=== PATIENT | female | born 1965 | race Caucasian/White ===

== ENCOUNTER 2021-01-08 10:04 | Inpatient (IN) | payer OTHER ==
[~2021-01-08] VITALS: Ht 162.6 cm; Wt 108.9 kg
[~2021-01-08 10:04] MED LIST: ADVIL PM CAPLE1 EACH PO; AMOX TR-K CLV1 EAC4 PO; AMOXIL 875 MG875 M1 PO; ASACOL 400 MG400 M1 PO; COMPAZINE10 M1 PO; HUMIRA40 MG/0.8 SUBQ; HYDROCODON-ACE1 EAC7 PO; IMURAN 50MG TAB50 M1 PO; IRON159 MG PO; IRON325 PO; LORTAB 5-325 M1 EACH PO; MULTI VITAMIN1 EACH PO; NEURONTIN 300300 M1 PO; NOHOMEMEDICATIONS; POTASSIUM20 PO; PREDNISONE 10 M10 M1 PO; PREDNISONE 5 MG5 M1 PO; TYLENOL325 MG PO; Zolpidem Tartrate PO
[2021-01-08 10:59] VITALS: BP 129/58
[2021-01-08 11:14] LABS: URINE BLOOD 1+ (Negative); URINE CLARITY CLEAR; URINE COLOR YELLOW; URINE GLUCOSE-RANDOM* NEGATIVE (Negative); URINE KETONES TRACE (Negative); URINE LEUKOCYTES-REFLEX TRACE (Negative); URINE NITRITE-REFLEX NEGATIVE (Negative); URINE PROTEIN (DIPSTICK) TRACE (Negative); URINE SPECIFIC GRAVITY >= 1.030 (1.005-1.035); URINE UROBILINOGEN 0.2 E.U./dl (0.2-1.0)
[2021-01-08 11:21] LABS: ICTOTEST (BILI CONFIRMATORY) Negative (Negative); URINE BILIRUBIN NEGATIVE (Negative)
[2021-01-08 11:33] LABS: CRYSTALS None Seen /LPF (None Seen); HYALINE CASTS 0-3 Few /LPF (None Seen); MUCUS 0-3 Light strn/LPF (None Seen)
[2021-01-08 11:34] LABS: SQUAMOUS 4-10 Moderate /LPF (0-3)
[2021-01-08 11:37] LABS: BACTERIA-REFLEX 1-9 Few /HPF (None Seen); URINE RBC 1-2 Rare /HPF (NONE SEEN); URINE WBC-REFLEX 0-5 Rare /HPF (0-5)
--- NOTE | 2021-01-08 11:38 | EKG ---
[place] [address] [facility] [place] [address] ELECTROCARDIOGRAM REPORT Name: OSMANI MEJIAS Room #: [facility]#: [id number] Admission: 01/08/21 Attend Phys: Discharge: Date of : 63 Report #: [id number] [facility] ED Test Date: 2021-01-08 Test Time: 11:20:01 Pat Name: OSMANI MEJIAS Department: Room: Gender: F Director Surgical: RAISA : 1965 Requested By: Reuben Tran Order Number: [id number] MD: Ayush Oakley Measurements Intervals Stanton Rate: 50 P: 62 NE: 164 QRS: 40 QRSD: 97 T: 71 QT: 467 QTc: 426 Interpretive Statements Sinus rhythm Compared to ECG 10/21/2011 11:42:16 ST (T wave) deviation no longer present Possible ischemia no longer present Electronically Signed On 01-08-2021 11:38:07 CDT by Ayush Oakley [email or web address] <ELECTRONICALLY SIGNED> By: Ayush Oakley MD, [facility] 01/08/21 1138 1120 1120 Ayush Oakley MD, FACC /EPI
[2021-01-08 12:06] LABS: POTASSIUM 4.3 mmol/L (3.5-5.1)
[2021-01-08 12:07] LABS: ABSOLUTE NEUTROPHILS 7.7 thou/uL (1.4-8.2); BASOPHILS 0.6 % (0.0-2.0); EOSINOPHILS 0.4 % (0.0-3.0); HEMATOCRIT 42.4 % (37.0-47.0); LYMPHOCYTES 8.7 % (24.0-44.0); MCH 30.9 pg (26.0-34.0); MCHC 33.1 g/dL (28.0-37.0); MCV 93.2 fL (80.0-100.0); MONOCYTES 5.2 % (1.0-8.0); PLATELET COUNT 265 thou/uL (150-400); POLYS 85.1 % (36.0-66.0); RBC 4.55 mil/uL (4.20-5.00); RDW 13.6 % (10.5-14.5); WBC 9.1 thou/uL (4.0-11.0)
[2021-01-08 12:09] LABS: ALBUMIN 3.7 g/dL (3.4-5.0); DIRECT BILIRUBIN 0.3 mg/dL (<0.1-0.2); TOTAL BILIRUBIN 0.8 mg/dL (0.2-1.0); TOTAL PROTEIN 7.3 g/dL (6.4-8.2)
[2021-01-08 16:55] VITALS: BP 134/49
[2021-01-08 17:33] VITALS: BP 134/49
[2021-01-08 17:45] VITALS: BP 112/64
[2021-01-08 21:00] VITALS: BP 122/57
[2021-01-09 05:50] LABS: HEMATOCRIT 39.6 % (37.0-47.0); HEMOGLOBIN 13.1 gm/dL (12.0-15.0); MCH 31.3 pg (26.0-34.0); MCHC 33.2 g/dL (28.0-37.0); MCV 94.2 fL (80.0-100.0); RBC 4.2 mil/uL (4.20-5.00); RDW 13.6 % (10.5-14.5); WBC 6.7 thou/uL (4.0-11.0)
[2021-01-09 05:54] LABS: CALCIUM 8.5 mg/dL (8.5-10.1); CREATININE 0.9 mg/dL (0.6-1.0); POTASSIUM 3.4 mmol/L (3.5-5.1)
[2021-01-09 07:16] VITALS: BP 121/58
[2021-01-09 15:41] VITALS: BP 132/77
[2021-01-09 15:47] VITALS: BP 94/50
[2021-01-09 20:19] VITALS: BP 114/59
[2021-01-10 07:56] VITALS: BP 125/60
--- NOTE | 2021-01-10 11:44 | HC ---
[facility] [place] [address] CONSULTATION Name: OSMANI MEJIAS Room #: 450-P ADM IN M.R.#: [id number] Admission: 01/08/21 Attend Phys: Merritt Kennedy MD Discharge: Date of : 63 Report #: [id number] THIS REPORT FOR: cc: Aubrie Damon MD, Cora A. MD Soliman, Mohsin Q. MD [facility] DOC #: [id number] Cat Galicia MD DATE OF SERVICE: 01/08/2021 GENERAL SURGERY CONSULTATION NOTE CHIEF COMPLAINT: Abdominal pain with nausea and vomiting. HISTORY OF PRESENT ILLNESS: The patient is a 55-year-old morbidly obese female who underwent a laparoscopic segmental small-bowel resection with release of small-bowel obstruction and Sugarbaker repair of an incarcerated parastomal hernia with Strattice mesh on 01/29/2016 here at [facility] by myself. The patient has been doing well since that time; however, developed abdominal pain, nausea and vomiting leading her to present to the emergency room earlier with findings of a large recurrent parastomal and incisional hernia containing loops of small-bowel with a resultant small-bowel obstruction. The patient has therefore been admitted and I am asked to evaluate. PAST MEDICAL HISTORY: Ulcerative colitis. PAST SURGICAL HISTORY: Status post total proctocolectomy with end ileostomy, prior cholecystectomy and hysterectomy. HOME MEDICATIONS: Neurontin and p.r.n. hydrocodone. ALLERGIES: SULFA, WHICH CAUSES HIVES AND A RASH. FAMILY HISTORY: Reviewed and noncontributory. SOCIAL HISTORY: Denies alcohol, tobacco or illicit drugs. REVIEW OF SYSTEMS: GENERAL: The patient denies nocturnal fevers or chills. HEENT: No change in vision, change in hearing. NECK: No swelling or difficulty swallowing. HEART: No chest pain, palpitations. LUNGS: No cough or shortness of breath. ABDOMEN: No nausea, no vomiting. GENITOURINARY: No dysuria or hematuria. [facility] [address] [place] [address] CONSULTATION Name: OSMANI MEJIAS Room #: [facility] IN ..#: [id number] Admission: 01/08/21 Attend Phys: Merritt Kennedy MD Discharge: Date of : 63 Report #: [id number] ENDOCRINE: No polyuria or polydipsia. HEMATOLOGIC: No history of bleeding or easy bruising. EXTREMITIES: No history of weakness or limited range of motion. NEUROLOGIC: No history of syncope or near syncopal episodes. SKIN AND INTEGUMENT: No history of abnormal lesions or moles. PSYCHIATRIC: No history of anxiety or depression. PHYSICAL EXAMINATION: VITAL SIGNS: Temperature 36.7, pulse 68, respirations 19, blood pressure 129/58. She has a BMI of 41.2, weighing 235 pounds. GENERAL: Alert and oriented, in no acute distress. HEENT: Normocephalic, atraumatic. Pupils equal, round, reactive to light. NECK: Supple without lymphadenopathy. Trachea midline. HEART: Regular rate and rhythm. RESPIRATORY: Lungs clear to auscultation bilaterally. ABDOMEN: Soft, nondistended. She is minimally tender in the parastomal tissues, but no guarding, rebound, or peritoneal signs or symptoms. GENITOURINARY: Normal external female genitalia. EXTREMITIES: No clubbing, cyanosis or edema. NEUROLOGIC: Cranial nerves II-XII are grossly intact. PSYCHIATRIC: Normal mood and affect. SKIN AND INTEGUMENT: No abnormal lesions or moles. LABORATORY AND X-RAY DATA: CBC shows white blood cell count of 9.1 thousand, hemoglobin 14.0, platelets 265,000. Creatinine is 1.0. Liver function enzymes are largely within normal limits. Her lactate is normal at 0.9. CT scan of the abdomen and pelvis reviewed, shows large lower abdominal to right parastomal hernia containing numerous loops of small-bowel and a resultant small-bowel obstruction. Of note, she has a positive urine screen even with a previous hysterectomy. ASSESSMENT AND PLAN: A 55-year-old obese female who underwent a total proctocolectomy and hysterectomy as well as a previous laparoscopic Sugarbaker repair of a parastomal hernia, who now presents with an incarcerated recurrent incisional and parastomal hernia, leading to a resultant small-bowel obstruction. Currently, the patient is not vomiting and as such, I do not see need for NG tube placement at this time. The patient should be kept n.p.o. with aggressive IV fluid rehydration. We will have gynecology evaluate for the positive screen per the orders of the hospitalist service and ultimately she will necessitate operative intervention in the form of a complex abdominal wall reconstruction after appropriate period of decompression for a couple of days. I sincerely appreciate this consult. I will follow closely and leave any further recommendations in the patient's chart as appropriate. [facility] [address] [place] [address] CONSULTATION Name: OSMANI MEJIAS Room #: 450-P ADM IN M.R.#: [id number] Admission: 01/08/21 Attend Phys: Merritt Kennedy MD Discharge: Date of : 63 Report #: [id number] MD MAGALI Alexander/PAUL <ELECTRONICALLY SIGNED> By: Cat Galicia MD, FACS 01/10/21 1144 1354 0045 Cat Galicia MD, FACS /nt
[2021-01-10 19:16] VITALS: BP 120/53
[2021-01-11 07:30] VITALS: BP 152/65
[2021-01-11 19:55] VITALS: BP 131/54
[2021-01-12 07:16] VITALS: BP 106/49
[2021-01-12 16:00] VITALS: BP 145/79
[2021-01-12 19:05] VITALS: BP 135/65
[2021-01-13 05:38] LABS: ALBUMIN 2.8 g/dL (3.4-5.0); CALCIUM 8.4 mg/dL (8.5-10.1); CREATININE 0.6 mg/dL (0.6-1.0); TOTAL BILIRUBIN 0.8 mg/dL (0.2-1.0); TOTAL PROTEIN 6.4 g/dL (6.4-8.2)
[2021-01-13 05:39] LABS: POTASSIUM 3.8 mmol/L (3.5-5.1)
[2021-01-13 06:46] LABS: ABSOLUTE NEUTROPHILS 3.3 thou/uL (1.4-8.2); BASOPHILS 0.2 % (0.0-2.0); EOSINOPHILS 2.1 % (0.0-3.0); HEMATOCRIT 40.2 % (37.0-47.0); HEMOGLOBIN 13.2 gm/dL (12.0-15.0); LYMPHOCYTES 18.7 % (24.0-44.0); MCH 30.9 pg (26.0-34.0); MCHC 32.8 g/dL (28.0-37.0); MCV 94.3 fL (80.0-100.0); PLATELET COUNT 219 thou/uL (150-400); RBC 4.26 mil/uL (4.20-5.00); RDW 13.7 % (10.5-14.5); WBC 5.1 thou/uL (4.0-11.0)
[2021-01-13 07:56] VITALS: BP 125/60
[2021-01-13 08:00] VITALS: BP 144/70
[2021-01-13 15:14] VITALS: BP 127/68
[2021-01-13 19:31] VITALS: BP 124/58
[2021-01-14 06:33] LABS: ALBUMIN 2.5 g/dL (3.4-5.0); CALCIUM 8.2 mg/dL (8.5-10.1); CREATININE 0.9 mg/dL (0.6-1.0); PHOSPHORUS 3.5 mg/dL (2.5-4.9)
[2021-01-14 06:35] LABS: POTASSIUM 2.2 mmol/L (3.5-5.1)
[2021-01-14 07:45] VITALS: BP 120/63
[2021-01-14 15:20] VITALS: BP 121/73
[2021-01-14 15:36] VITALS: BP 139/77
[2021-01-14 15:47] VITALS: BP 124/64
[2021-01-14 16:05] VITALS: BP 122/65
[2021-01-14 19:59] VITALS: BP 120/66
[2021-01-15 00:37] VITALS: BP 126/67
[2021-01-15 08:42] LABS: CALCIUM 8.6 mg/dL (8.5-10.1); CREATININE 0.9 mg/dL (0.6-1.0)
[2021-01-15 08:47] LABS: POTASSIUM 2.6 mmol/L (3.5-5.1)
[2021-01-15 09:00] VITALS: BP 133/71
[2021-01-15 09:17] LABS: MAGNESIUM 2.1 mg/dL (1.8-2.4)
--- NOTE | 2021-01-15 15:54 | O ---
[facility] [place] [address] OPERATIVE REPORT Name: OSMANI MEJIAS Room #: 450-P ADM IN M.R.#: [id number] Admission: 01/08/21 Attend Phys: Merritt Kennedy MD Discharge: Date of : 63 Report #: [id number] THIS REPORT FOR: cc: Aubrie Damon MD, Cora A. MD Soliman,Cat Feliciano MD [facility] DOC #: [id number] Cat Galicia MD DATE OF SERVICE: 01/14/2021 PREOPERATIVE DIAGNOSES: 1. Incarcerated recurrent incisional/parastomal hernia with small-bowel obstruction. 2. History of total proctocolectomy with end ileostomy and subsequent laparoscopic Sugarbaker repair of a parastomal hernia. 3. Morbid obesity with a BMI of greater than 40. POSTOPERATIVE DIAGNOSIS: 1. Incarcerated recurrent incisional/parastomal hernia with small-bowel obstruction. 2. History of total proctocolectomy with end ileostomy and subsequent laparoscopic Sugarbaker repair of a parastomal hernia. 3. Morbid obesity with a BMI of greater than 40. PROCEDURES PERFORMED: 1. Exploratory laparotomy with lysis of adhesions. 2. Debridement of ischemic/necrotic abdominal wall fascia and hernia sac. 3. Complex abdominal wall reconstruction with open repair of an incarcerated recurrent incisional/parastomal hernia using bioresorbable mesh. 4. Bilateral component separation in the anterior abdominal wall. 5. Adjacent tissue transfer closure of the anterior abdominal wall measuring 38 x 35 cm in dimension (1330 square cm). 6. Placement of a topical (Prevena) wound VAC. SURGEON: Cat Galicia MD HOP WORKER: LEÓN Stark ANESTHESIA: General endotracheal anesthesia with epidural anesthesia. ESTIMATED BLOOD LOSS: Minimal (less than 20 mL). COMPLICATIONS: None appreciated. SPECIMENS: Necrotic/ischemic abdominal wall fascia and hernia sac to pathology. [facility] [address] [place] [address] OPERATIVE REPORT Name: OSMANI MEJIAS Room #: 450-[facility]#: [id number] Admission: 01/08/21 Attend Phys: Merritt Kennedy MD Discharge: Date of : 63 Report #: [id number] INDICATIONS: The patient is a 55-year-old morbidly obese female who initially underwent both a hysterectomy and a cholecystectomy as well as a total proctocolectomy with end ileostomy by Dr. Fierro. The patient developed a parastomal hernia around her ileostomy in the right lower quadrant and as such, underwent a laparoscopic Sugarbaker repair with biologic mesh approximately 4-5 years ago. The patient has done well until recently, she developed acute onset nausea, vomiting and abdominal pain and bloating for which she presented to the emergency room and a CT scan was performed showing findings of incarcerated loops of small bowel contained within a recurrent parastomal hernia causing a bowel obstruction. The patient has been maintained with n.p.o. status and bowel rest and now that she has had decompression of her GI tract. Indication was for definitive surgical management today. DESCRIPTION OF PROCEDURE: After explaining the risks, benefits and alternatives of the procedure with the patient in detail in the preoperative holding area and obtaining consent, the patient was brought to the operating room and placed supine on the operating room table. After conducting a thorough timeout procedure, verifying correct patient and procedure, the patient was given general endotracheal anesthesia. Once adequate anesthesia was obtained, her SCDs were hooked up to the pneumatic compression device and she was given a preoperative dose of antibiotics in line with the SCIP protocol as it was time for her regularly scheduled inpatient regimen of antibiotic dosing. The patient's abdomen was now prepped and draped in the standard surgical sterile fashion with a Mark catheter placed within her ileostomy and the balloon inflated to prevent intraoperative contamination. Mark catheterized ostomy was covered with a Ray-Tarik and Ioban to prevent contamination. Now that the patient was prepped and draped in standard surgical sterile fashion, a #10 bladed scalpel was used to create a longitudinal midline incision from the superior umbilical location to the suprapubic location, carried to the left midline. Electrocautery was used to carry this down through skin and subcutaneous tissues to ensure hemostasis until we arrived upon the anterior fascia. There was evidence of a hernia defect at the umbilicus, which was easily entered and a finger was placed in the abdomen to control the fascial opening using electrocautery to prevent thermal burn. Now that I had the entire fascia opened, Trace clamps were placed on the midline fascial wound to the patient's right side and this was elevated. Attention was turned to the incarcerated loops of small bowel contained within the parastomal hernia. I was able to manually reduce these by pulling them intraabdominally. There were significant adhesions likely due to longstanding incarceration that were taken down with electrocautery. Now that I had fully reduced the small bowel, I proceeded to run the small bowel in a jjzv-hdgs-jxwi fashion where the ileostomy proximally showing no evidence of interloop adhesions, obstructions, serosal defects or enterotomies. The parastomal hernia was sizable showing approximately 5 cm superior to the ileostomy and being approximately 5 cm transversely. Rather than relocate the ileostomy, which would be very difficult due to short, thick, [facility] [address] [place] [address] OPERATIVE REPORT Name: OSMANI MEJIAS Room #: 450-P [facility] IN ..#: [id number] Admission: 01/08/21 Attend Phys: Merritt Kennedy MD Discharge: Date of : 63 Report #: [id number] fat mesentery, I elected to repair the parastomal hernia with a #1 PDS suture in standard running fashion, bringing the lateral borders of the parastomal hernia together and running the suture from inferior to superior. This brought it snug to the ileostomy as it traversed through the fascial opening. This primary suture repair appeared to be adequate at the fascial level; however, now attempts at medializing the midline fascial wound were unsuccessful without significant tension. I therefore proceeded to perform a bilateral component separation in the external oblique aponeurosis by scoring along the lateral border of the rectus abdominis muscle bilaterally as far craniocaudal as possible on the left and superior to the ileostomy on the right. This allowed for significant medial mobilization of the midline fascial wound that could be done without tension and without applying additional tension to the parastomal hernia that just been repaired. I now created large skin flaps circumferentially along the abdominal wall, which allowed me to perform the bilateral component separation and this was carried further laterally, superiorly and inferiorly to allow for an onlay of bioresorbable mesh buttressing. The skin flaps were created and the ischemic/necrotic fascia and hernia sac was resected and passed off the field as nonviable tissue. I now proceeded to close the midline fascial wound using looped #1 PDS suture in standard running fashion, which was tied down at the superior aspect of the fascial incision ensuring we did not catch the loop of bowel along the way by placing a malleable under the fascial closure. The malleable was removed and passed off the field immediately prior to tying down the midline fascial suture. Now that I had satisfactorily closed the fascial wound, I selected a piece of OviTex core bioresorbable permanent mesh. This measured 30 x 25 cm in dimension. A keyhole was cut out of the mesh to allow for traversing around the ileostomy and this was anchored using 2-0 Prolene to close the keyhole slit. The mesh was then anchored as an onlay using several sutures of 0 PDS suture as well as 40 mL of Tisseel to weld it to the fascial wound. A 19-Ukrainian round Jacek-Ruffin drain was now placed in the subcutaneous space, brought out through the left lower quadrant where it was anchored to the skin using 2-0 nylon in standard fashion. As there was now a paucity of subcutaneous tissue around the stoma from the large chronic parastomal hernia, I did elect to perform adjacent tissue transfer closure of the anterior abdominal wall. These large skin flaps were elevated. Counter incisions were made using electrocautery internally to allow rotated vascularized pedicles of subcutaneous tissue to fill in all of the areas where there was no subcutaneous tissue present. These rotated vascularized pedicle flaps were anchored using interrupted inverted 3-0 Vicryl sutures in several layers. Once I was satisfied with the abdominal wall closure, skin was closed at the dermal level using interrupted inverted 3-0 Vicryl sutures as well as skin ramin. Topical Prevena wound VAC was then applied. Digital finger intubation of the ileostomy after removal of the Mark catheter showed it to be patent to a subfascial level with near immediate expulsion of liquid stool into the colostomy appliance. At the end of the procedure, all instrument, needle and sponge counts were correct. [address] [address] OPERATIVE REPORT Name: OSMANI MEJIAS Room #: 450-P ADM IN M.R.#: [id number] Admission: 01/08/21 Attend Phys: Merritt Kennedy MD Discharge: Date of : 63 Report #: [id number] The patient tolerated the procedure without incident, was awakened in the operating room and transitioned to the recovery room in stable condition with no apparent complications. Cat Galicia MD MQS/NOVA <ELECTRONICALLY SIGNED> By: Cat Galicia MD, FACS 01/15/21 1554 1330 1507 Cat Galicia MD, FACS /nt
[2021-01-15 16:00] VITALS: BP 127/64
[2021-01-15 19:46] VITALS: BP 131/64
[2021-01-16 04:25] VITALS: BP 119/64
[2021-01-16 05:53] LABS: HEMATOCRIT 37.3 % (37.0-47.0); HEMOGLOBIN 12.2 gm/dL (12.0-15.0); MCH 30.8 pg (26.0-34.0); MCHC 32.6 g/dL (28.0-37.0); MCV 94.5 fL (80.0-100.0); RBC 3.95 mil/uL (4.20-5.00); RDW 13.8 % (10.5-14.5); WBC 8.9 thou/uL (4.0-11.0)
[2021-01-16 06:04] LABS: CREATININE 0.8 mg/dL (0.6-1.0)
[2021-01-16 06:08] LABS: POTASSIUM 2.8 mmol/L (3.5-5.1)
[2021-01-16 07:15] VITALS: BP 125/68
[2021-01-16 19:37] VITALS: BP 114/61
[2021-01-17 05:40] LABS: CALCIUM 7.9 mg/dL (8.5-10.1); CREATININE 0.7 mg/dL (0.6-1.0); POTASSIUM 3.3 mmol/L (3.5-5.1)
[2021-01-17 07:10] VITALS: BP 119/70
[2021-01-17] MEDS ORDERED: OXYCODONE HCL 55 MG PO (12:17)
[2021-01-17] MEDS ORDERED: ZOFRAN 4 MG ORAL4 MG PO (15:38)
[2021-01-17] MEDS ORDERED: NEURONTIN 300M300 M2 PO (15:38)
[2021-01-17] MEDS ORDERED: KLOR-CON 10 ER10 MEQ PO (15:38)
[2021-01-17] MEDS ORDERED: CEFDINIR300 MG PO (15:43)
--- NOTE | 2021-01-17 16:06 | PATH ---
[facility] [address] [place] [address] PATHOLOGY RPT PROCEDURE Name: PAULINE MEJIAS Room #: 450-P ADM IN M.R.#: [id number] Admission: 01/08/21 Date of : 63 Discharge: Report #: [id number] Path Case #: [id number] [facility] Accession Number: [id number] . 01 Material submitted: . small bowel - HERNIA SAC AND INCARCERATED CONTENTS . 01 Clinical history: . ABDOMINAL COMPONENT SEPARATION OPEN SMALL BOWEL OBSTRUCTION / PARASTOMAL HERNIA ABDOMINAL PAIN . 02 Diagnosis: Hernia sac and incarcerated contents, repair: - Fibrovascular connective tissue with congestion and reactive changes. . (IUV:mml; 01/17/2021) QLM 01/17/2021 1316 Local . 02 Electronically signed: . India Crane MD, Pathologist NPI- [id number] . 01 Gross description: . Received in formalin labeled "Pauline Mejias, hernia sac and incarcerated contents" are 2 portions of pink-salmeron membranous tissue and attached yellow-salmeron lobulated tissue measuring entirely 16.5 x 12.5 x 2.8 cm. The specimen is sectioned to reveal focally fibrotic cut surfaces without masses or nodules identified. Supervisor Wall Mirror Department tissue is submitted in cassette A1. [place] [place] [facility] 01/16/2021 0849 Local . 02 Pathologist provided ICD-10: K43.5 . 02 CPT . 881866 Specimen Comment: A courtesy copy of this report has been sent to [phone] Specimen Comment: [phone], Specimen Comment: Report sent to ,DR DE LEÓN / DR CLAY Performed at: [address] [id number] MD Brannon Shen MD Phone: [phone] Performed at: [address] [address] PATHOLOGY RPT PROCEDURE Name: PAULINE MEJIAS Room #: 450-P ADM IN M.R.#: [id number] Admission: 01/08/21 Date of : 63 Discharge: Report #: [id number] Path Case #: [id number] [address] [place] [address] [id number] MD India Crane MD Phone: [phone]
[2021-01-17 16:34] VITALS: BP 110/69
[2021-01-17 16:43] VITALS: BP 110/69
== END 2021-01-17 17:32 | disposition home or self-care (01) | DRG 336 ==
LOC: ER 10:04 → 4W 17:04 → EROBS 17:04 → 4W 17:33
PROVIDERS: Hospitalist; Internal Medicine; Nurse Practitioner; Surgery; ADMIT Hospitalist; ATTEND Hospitalist
PROC: 0D9670Z Drainage of Stomach with Drainage Device, Via Natural or Artificial Opening (ICD-10-PCS; principal; 2021-01-09)
PROC: 0DNU0ZZ Release Omentum, Open Approach (ICD-10-PCS; 2021-01-14)
PROC: 0JB80ZZ Excision of Abdomen Subcutaneous Tissue and Fascia, Open Approach (ICD-10-PCS; 2021-01-14)
PROC: 0JX80ZB Transfer Abdomen Subcutaneous Tissue and Fascia with Skin and Subcutaneous Tissue, Open Approach (ICD-10-PCS; 2021-01-14)
PROC: 0WUF0JZ Supplement Abdominal Wall with Synthetic Substitute, Open Approach (ICD-10-PCS; 2021-01-14)
DX: K43.0 Incisional hernia with obstruction, without gangrene (principal); E87.0 Hyperosmolality and hypernatremia; Z68.41 Body mass index [BMI] 40.0-44.9, adult; K43.3 Parastomal hernia with obstruction, without gangrene; E66.01 Morbid (severe) obesity due to excess calories; Z20.822 Contact with and (suspected) exposure to COVID-19; E11.9 Type 2 diabetes mellitus without complications; E87.6 Hypokalemia; Z90.49 Acquired absence of other specified parts of digestive tract; Z93.2 Ileostomy status; Z90.710 Acquired absence of both cervix and uterus; Z88.2 Allergy status to sulfonamides; Z87.891 Personal history of nicotine dependence; Z90.722 Acquired absence of ovaries, bilateral
CPT/HCPCS: 10040; 50010; 50101; 50386; 50455; 51437; 56524; 56525; 56527; 56530; 57092; 57116; 57254; 58775; 62110; 62900; 65075; 70005

== ENCOUNTER → 2021-02-10 | Outpatient (CLI) | payer OTHER ==
[~2021-02-10] MED LIST changes: +CEFDINIR300 MG PO; +KLOR-CON 10 ER10 MEQ PO; +NEURONTIN 300M300 M2 PO; +OXYCODONE HCL 55 MG PO; +ZOFRAN 4 MG ORAL4 MG PO
== END ==
LOC: HYPER 13:59
PROVIDERS: ATTEND Emergency Medicine
DX: T81.49XA Infection following a procedure, other surgical site, initial encounter (principal); L98.492 Non-pressure chronic ulcer of skin of other sites with fat layer exposed; E66.01 Morbid (severe) obesity due to excess calories; K51.818 Other ulcerative colitis with other complication; Z93.3 Colostomy status; Z87.891 Personal history of nicotine dependence; Z68.38 Body mass index [BMI] 38.0-38.9, adult; Y92.238 Other place in hospital as the place of occurrence of the external cause; Y83.8 Other surgical procedures as the cause of abnormal reaction of the patient, or of later complication, without mention of misadventure at the time of the procedure

== ENCOUNTER 2021-02-13 17:25 | Inpatient (IN) | payer OTHER ==
[~2021-02-13] VITALS: Ht 162.6 cm; Wt 109.3 kg
[2021-02-13 17:28] VITALS: BP 135/68
--- NOTE | 2021-02-13 17:44 | NUR ---
PT DENIES FEVERS, CHILLS OR PAIN. PT STATES COPIOUS AMOUNT OF BROWN LIQUID LOOKING LIKE HER STOOL FROM HER OSTOMY BAG COMING OUT OF HER WOUND. PT STATES REDNESS ON THE OUTTER EDGES LOOKS THE SAME. PT IS A&O X4, GCS 15, NO APPARENT DISTRESS NOTED
[2021-02-13 19:13] LABS: ABSOLUTE NEUTROPHILS 4.3 thou/uL (1.4-8.2); EOSINOPHILS 13.8 % (0.0-3.0); HEMATOCRIT 33.4 % (37.0-47.0); LYMPHOCYTES 14.3 % (24.0-44.0); MCH 30.2 pg (26.0-34.0); MCHC 32.9 g/dL (28.0-37.0); MCV 91.9 fL (80.0-100.0); MONOCYTES 12.3 % (1.0-8.0); PLATELET COUNT 301 thou/uL (150-400); POLYS 58.6 % (36.0-66.0); RBC 3.63 mil/uL (4.20-5.00); RDW 13.7 % (10.5-14.5); WBC 7.4 thou/uL (4.0-11.0)
[2021-02-13 19:18] LABS: CALCIUM 8.6 mg/dL (8.5-10.1); POTASSIUM 3.4 mmol/L (3.5-5.1)
[2021-02-13 19:24] LABS: ALBUMIN 2.5 g/dL (3.4-5.0); TOTAL BILIRUBIN 0.3 mg/dL (0.2-1.0); TOTAL PROTEIN 7.4 g/dL (6.4-8.2)
[2021-02-13 21:21] VITALS: BP 119/59
[2021-02-13 21:41] VITALS: BP 119/59
[2021-02-13 22:00] VITALS: BP 123/69
[2021-02-14 04:00] VITALS: BP 94/58
--- NOTE | 2021-02-14 04:46 | NUR ---
ADMIT PT ADMITTED TO ROOM 350 FROM ED FOR AN ABDOMINAL WALL ABSCESS. PT A/O X4, UP AD DARREN. IV INTACT TO LF AND NS@126CC'S/HR INFUSING, GETTING VANCOMYCIN, AND ZOSYN INTERMITTENTLY ORDERED. VSS, LUNGS CLEAR, PT HAD AN BOWEL RESECTION AND AN ILEOSOTMY PLACED INCISION TO MIDLINE ABDOMEN HAS A SMAL AREA NEAR THE UMBILICUS THAT HAD DEHISCED AND IS DRAINING PURULENT DRAINAGE, WOUND BED WITH WITH SLOUGH MATERIAL DRAINAGE OF PUS LIKE MATERIAL NOTED PT'S PANTS SOAKED WITH DRAINAGE ON ARRIVAL STATED IT WAS COMING OUT LIKE A WATER HOSE. DRAINAGE HAD DECREASED BY THE TIME PT ARRIVED TO FLOOR. DENIES PAIN. WOUND CLEANSED WITH NS, WET TO DRY DRESSING APPLIED, INTERDRY APPLIED TO PANNUS TO HELP WICK MOISTURE FROM PANNUS AND WOUND DRAINAGE AWAY.
[2021-02-14 05:54] LABS: HEMATOCRIT 33.4 % (37.0-47.0); HEMOGLOBIN 11.1 gm/dL (12.0-15.0); MCH 30.3 pg (26.0-34.0); MCHC 33.1 g/dL (28.0-37.0); MCV 91.6 fL (80.0-100.0); RBC 3.65 mil/uL (4.20-5.00); WBC 6.9 thou/uL (4.0-11.0)
--- NOTE | 2021-02-14 06:29 | NUR ---
PROGRESS PT A/O X4 UP WITH SBA, VOIDING QS. DENIES PAIN. VSS TELE INTACT READING SR WITH RATES IN 70'S. NIH SCORE 1 IV TO RAC SL AND LF SL. ACCUCHECKS CONTINUE PLANS FOR MRI TODAY CONTINUE POC.
[2021-02-14 06:31] LABS: CALCIUM 8.4 mg/dL (8.5-10.1); POTASSIUM 3.1 mmol/L (3.5-5.1)
[2021-02-14 07:36] VITALS: BP 106/55
--- NOTE | 2021-02-14 09:33 | NUR ---
OSTOMY CARE; AWAKE, ALERT, STATES SHE CHANGED OSTOMY POUCH ON 02/12, INTACT, NO LEAKAGE, LOOSE BILISH STOOL NOTED, DID NOT BRING SUPPLIES TO HOSP, OMAR CUT TO FIT SUPPLIES PLACED AT BS, DR DE LEÓN HERE, ASSESSED MID LINE ABD WOUND, LARGE AMT SEROUS PINKISH YELLOW DRAINAGE NOTED W/ SOME SLOUGH IN WOUND, PT STATES SHE SAW DR HUMPHREY ON 02/10 FOR WOUND EVAL. DAUGHTER ASSISTING W/ WOUND CARE AND NOTICED LARGE AMT DRAINAGE YESTERDAY AND CAME TO ER FOR EVAL, DR KANG AND DR HUMPHREY CONSULTED, WOUND REDRESSES W/ NS W/D GAUZE, COVERED W/ ABD PAD UNTIL SEEN BY WOUND DR RECOMMENDATIONS; CHANGE POUCH Q 3-5 DAYS AND PRN, EMTPY PRN IVF EMBRYOLOGIST AWARE RECOMMENDATIONS; C
--- NOTE | 2021-02-14 09:45 | NUR ---
pt indicated she at home with her spouse and dtr, mavis. pt is active and independent with care. pt uses no dmes. pt has sx this past december. pt used hh in the past but doesnt recall which agenecy & stated since sx mavis has been "doing a good job...packing wound." pt indicated wound care to assess today and surgeon to assess her situation today. cm to cont to follow to assit with d/c planning as needed.
--- NOTE | 2021-02-14 10:48 | NUR ---
Assess due to RD consult for pt with dehisced abdominal wound. Recently here in 12/2020 for exploratory lap, BERTHA, and incarcerated hernia repair, total colectomy for ulcerative colitis. Appetite has been fair past few weeks, complains foods taste alteration, some nausea. Trying to eat smaller meals, and supplements with premier protein drinks. Had lost about 20 lb intentional before surgery following a lower carb diet. Wt down additional 11 lb. NPO for now, but pt would like to start Ensure Max once diet advanced. Low nutrition risk.
[2021-02-14 14:54] VITALS: BP 108/54
[2021-02-14 19:11] VITALS: BP 103/55
--- NOTE | 2021-02-14 19:57 | NUR ---
PLACED HAT IN THE TOILET IN ORDER TO CATCH URINE OUTPUT. ALSO ASKED PATIENT TO COLLECT ILEOSTOMY CONTENTS INTO GRADUATE,FOR OUTPUT MEASUREMENT.
--- NOTE | 2021-02-15 02:22 | NUR ---
CONTINUE TO MAINTIAN ANTIBIOTIC ADMINISTRATION. RESTING QUIETLY TONIGHT. DENIES PAIN AT THIS TIME. SHE IS WANTING TO REST. SHE STATED THAT SHE IS FEELING EXHAUSTED. DRESSING TO ABD DRY AND INTACT, NO SHADOWING THROUGH OF DRAINAGE.
[2021-02-15 04:14] VITALS: BP 93/45
[2021-02-15 07:01] VITALS: BP 99/62
[2021-02-15 11:13] LABS: CALCIUM 8.3 mg/dL (8.5-10.1); CREATININE 0.9 mg/dL (0.6-1.0); POTASSIUM 4.1 mmol/L (3.5-5.1)
[2021-02-15 14:59] VITALS: BP 90/40
[2021-02-15 21:14] VITALS: BP 88/44
[2021-02-16 03:28] VITALS: BP 97/53
[2021-02-16 05:18] LABS: CALCIUM 7.7 mg/dL (8.5-10.1); CREATININE 0.9 mg/dL (0.6-1.0); POTASSIUM 3.4 mmol/L (3.5-5.1)
[2021-02-16 06:59] VITALS: BP 107/62
[2021-02-16 15:11] VITALS: BP 98/47
[2021-02-16 19:27] VITALS: BP 126/68
[2021-02-17 04:24] VITALS: BP 81/44
[2021-02-17 05:17] VITALS: BP 94/48
--- NOTE | 2021-02-17 05:32 | NUR ---
Pt. requested sleep med. SUPERVISOR TOWER notified and order received. Tylenol pm given per pt. request and stated she slept well during the night. C/O soreness around ostomy site from it being excoriated she rated as 3/10. Mid abd dressing CDI. Kept NPO per order. Voiding per bathroom. Afebrile. BP this am 81/44 when she first woke up .Asymptomatic and she stated her BP usually runs low sometimes. Rechecked and got 94/48 with MAP of 63. Up ad marisela in room with steady gait.
[2021-02-17 05:48] LABS: CALCIUM 7.9 mg/dL (8.5-10.1)
[2021-02-17 07:19] VITALS: BP 101/51
--- NOTE | 2021-02-17 09:58 | NUR ---
OSTOMY CARE; AWAKE, ALERT, COOPERATIVE, POUCH EDGES LOOSE, PT STATES ISSUES OVER WEEKEND W/ POUCH LEAKING AND NOW PERISTOMAL AREA RED, EXCORIATED ~ 3CM AREA, SCANT BLEEDING, STOMA RED VIABLE FLAT W/ SKIN SURFACE, MARATHON PREP APPLIED TO PERISTOMAL AREA, SWITCHED TO CONVEX PRECUT 1 INCH POUCH FOR BETTER WEAR TIME AND LESS LEAKAGE, ADAPT RING APPLIED UNDER WAFER, DAUGHTER AT BS WHO ASSISTS PRN OSTOMY CARE AT HOME, GOOD UNDERSTANDING OF CARE, WILL ORDER PRECUT POUCHES TO BE SENT TO HOME THRU [employer] SECURE START PROGRAM, PT GETS SUPPLIES THRU SCOTTY, GIVEN #S OF NEW SUPPLIES TO ORDER RECOMMENDATIONS; OMAR WAFER #[id number], POUCH #[id number], ADAPT RING #7345, CHANGE Q 3-4 DAYS AND PRN, EMTPY PRN LANDFILL GAS TECHNICIAN AWARE
[2021-02-17 15:00] VITALS: BP 97/54
--- NOTE | 2021-02-17 15:53 | NUR ---
SW reviewed chart and spoke with nursing and attending physician. Pt remains on IV abx. ID, wound care and surgery following for possible I&D. Case discussed with dope house operator helper. TYE is following to assist as needed with discharge planning.
--- NOTE | 2021-02-17 19:18 | NUR ---
RN ASSUMED PT'S CARE AT 0700-1700PM, PT IS A&OX4, PT IS CONTINUING IV ABX AND WOUND CARE , PT'S VS ARE STABLE, ID DR AND WOUND DR HAVE SEEING THE PT.
[2021-02-17 19:59] VITALS: BP 109/64
[2021-02-18 03:51] VITALS: BP 105/50
--- NOTE | 2021-02-18 06:39 | NUR ---
Pt. requested sleep med , tyl pm given and stated she slept well during the night. Denies need for pain med. Up ad marisela in room with steady gait. Voids per bathroom and empties own ileostomy. Mid abd dressing dry and intact. Making some progress towards care plan goals.
[2021-02-18 08:00] VITALS: BP 90/50
--- NOTE | 2021-02-18 12:59 | NUR ---
SW reviewed chart and spoke with nursing and attending physician. Pt remains on IV abx. Fistulagram ordered today due to abdominal pain with drainage. Wound care is following. Plan is for pt to discharge home when medically stable. TYE is following to assist as needed with discharge planning.
--- NOTE | 2021-02-18 17:23 | NUR ---
RN ASSUMED PT'S CARE AT 0700AM, PT IS A&OX4, PT IS CONTINUING IV ABX, AND WOUND CARE , PT'S VS ARE STABLE, PT CAN GO TO BATH ROOM BY HERSELF, PT CAN TOLERATIVE ABD PAIN , PT HAS CT ABD/ PELVIS W/O CONTRAST DONE TODAY, RESULTS SHOW NO FISTULA AND ABSCESS. PT HAS ONE TIME MEDICATION FOR N/V.
[2021-02-18 20:02] VITALS: BP 107/52
--- NOTE | 2021-02-19 05:08 | NUR ---
denies abd pain, however she did want somethinf her back achiness at bedtime. tylenol and benedryl at bedtime relieved her pain and insomnia. dressing to abd intact. she has been resting well tonight. careplan reviewed.
[2021-02-19 05:33] VITALS: BP 99/54
[2021-02-19 07:08] VITALS: BP 100/52
--- NOTE | 2021-02-19 09:20 | NUR ---
OSTOMY CARE; POUCH STILL INTACT FROM WEDNESDAY, 02/17, NO LEAKAGE, CONVEX 1' SUPPLIES AT BS, PT HAS GOOD UNDERSTANDING OF OSTOMY CARE, TO USE MARATHON PREP UNTIL AREA ALL HEALED, ALSO AWARE OF CORRECT SUPPLIES TO ORDER, WANTS TO GO HOME, STATES DAUGHTER WILL ASSIST W/ CARE BUT WOULD ALSO LIKE HOME HEALTH SERVICES, CASE MANAGEMENT WORKING W/ PT, WILL CHANGE POUCH TOMORROW IF PT STILL HERE. ALSO ORDERED SUPPLIES THRU SECURE START OMAR TO BE SENT TO HOME. AWAITING DR VISIT REGARDING WOUND CARE, POSSIBLE NPWT, IV ANTIBIOTICS. WILL CONT TO FOLLOW LECTURER IN COMPUTER SCIENCE AWARE
--- NOTE | 2021-02-19 09:45 | HC ---
[facility] [place] [address] CONSULTATION Name: OSMANI MEJIAS Room #: 350-P ADM IN M.R.#: [id number] Admission: 02/13/21 Attend Phys: Merritt Kennedy MD Discharge: Date of : 63 Report #: [id number] THIS REPORT FOR: cc: Aubrie Damon MD, Cora A. MD Althoff, Jeffrey R. MD ~ DOC #: [id number] Alex Suazo MD DATE OF SERVICE: 02/14/2021 CHIEF COMPLAINT: Surgical wound abdominal wall. HISTORY OF PRESENT ILLNESS: This is a 55-year-old female patient who has undergone recent complex abdominal wall repair. She went home. She had an ileostomy and has had some drainage as her ostomy appliances leaked. Additionally, she had a CHAYA drain in place that was accidentally pulled out and she pushed back in. She within the next 24-48 hours developed increasing swelling, redness from the abdominal wall and developed significant drainage from the midline incision line. She has been followed by Dr. Henry. We have been asked to see her with regard to wound care. PAST MEDICAL HISTORY: Once again is positive for a complex abdominal wall reconstruction with an open repair of an incarcerated recurrent incisional and parastomal hernia. She has a history of ulcerative colitis, status post total colectomy with ileostomy, diabetes mellitus, cholecystectomy, morbid obesity. FAMILY HISTORY: Noncontributory. SOCIAL HISTORY: Negative for significant alcohol or tobacco use. REVIEW OF SYSTEMS: CONSTITUTIONAL: The patient denies fever, chills or weight loss. NEUROLOGICAL: The patient denies focal weakness or tingling. EYES: The patient denies visual changes, redness, drainage. ENT: The patient denies earache, nasal drainage, sore throat. CARDIOVASCULAR: The patient denies chest pain, palpitations, diaphoresis. PULMONARY: No congestion of breath. GASTROINTESTINAL: Denies nausea, vomiting, diarrhea, but does have some mild abdominal discomfort, but not significant pain, but moderate drainage. ORTHOPEDIC: The patient denies pain, swelling, or limitation of the extremities. Others listed in a 14-point review of systems are negative. PHYSICAL EXAMINATION: VITAL SIGNS: At this time include temperature 36.7, pulse 67, respiration of 16, blood pressure 108/54. GENERAL: This is a chronically ill-appearing female patient appears [facility] [address] [place] [address] CONSULTATION Name: OSMANI MEJIAS Thao Room #: 350-P [facility] IN M.R.#: [id number] Admission: 02/13/21 Attend Phys: Merritt Kennedy MD Discharge: Date of : 63 Report #: [id number] distress. HEENT: Normocephalic. Nose and throat are clear. NECK: Supple. LUNGS: Clear. ABDOMEN: Soft. There is some mild induration below in the lower quadrants but no fluctuance noted. There is a midline surgical incision. There is some separation of the midline. We were able to suction out approximately 200 mL of serosanguineous type fluid. There is no odor. It does not have the appearance of any enteric contents. The ileostomy appliance is fitted in place right now fairly well. NEUROLOGIC: The patient is alert and oriented, moving all 4 extremities spontaneously. LABORATORY DATA: Sodium 139, potassium 3.1, chloride 106, CO2 22, BUN 11, creatinine 1.0, glucose 83. White blood cell count 6.9 with a hemoglobin of 11.1. ASSESSMENT: 1. Surgical wound abdominal wall, status post complex abdominal wall repair and parastomal hernia repair. 2. Surgical incisional separation with moderate drainage. This could represent seroma versus abscess versus possible enterocutaneous fistula, although I think that is less likely given the appearance of the drainage material. Morbid obesity. 3. Type 2 diabetes mellitus. 4. History of ulcerative colitis, status post total colectomy and ileostomy placement. RECOMMENDATION: The recommendation at this point in time, we will recommend packing with half-inch iodoform gauze to be changed on a daily basis and as needed. We will recommend placement of an EVD to cover the incision line. We will continue to observe clinically. We might consider a fistulogram, although I am not entirely sure if this is needed at this time. She will be seen by Infectious Disease as well as by General Surgery. I appreciate being asked to see her in consultation. MD GERRY Vuong/FRANCISCO <ELECTRONICALLY SIGNED> By: Alex Suazo MD 02/19/21 0945 [id number] Alex Suazo MD /nt
--- NOTE | 2021-02-19 13:36 | NUR ---
TYE reviewed chart and spoke with nursing and attending physician. Pt is progressing towards goals for discharge. Fistulagram was negative. Pt remains on IV abx. May need wound vac placed per wound care. TYE received voice message from Karla Red RN CM with pt's insurance to assist with post acute needs. TYE left voice message for Karla ( Case # [id number]) this morning to request in-network providers if needed. Awaiting call back at this time. Plan is for pt to discharge home when medically stable. TYE is following to assist as needed with discharge planning.
--- NOTE | 2021-02-19 13:40 | NUR ---
CARE ASSUMED THIS AM, PT ALERT AND ORIENTED X4, DENIES ANY PAIN, NAUSEA AND VOMITTING. PT ON ROOM AIR, NO SIGNS OF DISTRESS NOTED. ABD WOUND CHANGE THIS AM BY NIGHT NURSE. PT UP AD DARREN. ILEOTOMY IN PLACE. PT DNEIES ANY NEEDS AT MOMENT. WILL CONTINUE TO MONITOR.
[2021-02-19 14:50] VITALS: BP 118/61
[2021-02-19 19:45] VITALS: BP 123/4; BP 123/64
--- NOTE | 2021-02-20 08:29 | NUR ---
OSTOMY CARE; ALERT, COOPERATIVE, POUCH EDGES LOOSE THIS AM, CHANGED USING CONVEX OMAR ONE PIECE 1 INCH CONVEX, PERISTOMAL SKIN IMPROVED, ONLY DENIS AT BASE OF STOMA. MARATHON PREP APPLIED W/ ADAPT RING UNDER WAFER, EDUCATION TO PT ON USE OF NEED FOR CONVEX APPLIANCES AND USE OF MARATHON, GOOD UNDERSTANDING, STOMA RED VIABLE, SLIGHTLY BUDDED W/ BROWN LOOSE STOOL PRESENT, SCHEDULED FOR ABD WOUND DEBRIDEMENT TODAY, WILL CONT TO FOLLOW RECOMMENDATIONS; RILEY CONVEX APPLIANCE, CHANGE Q 3-4 DAYS AND PRN, EMPTY PRN GAS DISTRIBUTION SUPERVISOR AWARE
[2021-02-20 08:41] VITALS: BP 93/51
--- NOTE | 2021-02-20 09:20 | NUR ---
Followup: eating much better 80-100% of meals and drinking ensure supplement. Wts are trending higher now 241-243 lb. Remains low nutrition risk. Chart notes progressing towards discharge goals.
--- NOTE | 2021-02-20 13:56 | NUR ---
TYE reviewed chart and spoke with nursing and attending physician. Pt is slowly progressing towards goals for discharge. Pt remains on IV abx. Pt to have wound vac placed today per wound care. Wound vac [facility] be [facility] through [facility] per wound care. Pt will not have an I&D. Pt will also need HH services. TYE spoke with Karla ( Case # [id number]) at pt's insurance to discuss in network providers. [facility] in network with pt's insurance. [facility] is also in network. TYE notified [facility] liaison of new referral. Contact info for Karla provided to wound care and HH to assist with authorization process if needed. Pt is currently having wound vac placed. SW to follow up with pt at a later time to discuss discharge plan. TYE is following to assist as needed with discharge planning.
--- NOTE | 2021-02-20 14:55 | NUR ---
PT I&D CANCELLED BY DR. HUMPHREY, WOUND VAC PLACED INSTEAD. PT TOOK A SHOWER EARLIER. ON ROOM AIR, NO SIGNS OF DISTRESS. DENIES ANY PAIN. PLAN IS TO CONTINUE IV ABX, POSSIBLE D/C SOON.
[2021-02-20 15:20] VITALS: BP 118/71
[2021-02-20 19:40] VITALS: BP 110/62
[2021-02-21 03:25] VITALS: BP 109/57
--- NOTE | 2021-02-21 05:14 | NUR ---
C/O mild headache , tylenol given with good relief. Sleep med given and stated she slept well during the night. Abd wound to wound vac. Denies any other concern. Progressing towards care plan goals.
[2021-02-21 07:06] VITALS: BP 110/59
--- NOTE | 2021-02-21 08:27 | NUR ---
Received consult to arrange home IV abx. Pt will need Ceftriaxone 2 gm daily. TYE spoke with pt to discuss home IV abx. Options for home infusion provided. No preference voiced. TYE spoke with pt's RN CM with her insurance, [employer], to obtain in-network providers. [facility] is in-network with pt's insurance plan. TYE faxed referral to [facility] and notified [facility] liaison. Awaiting insurance verification at this time. Pt's wound vac is scheduled to be delivered to [facility] today and will be placed prior to discharge. Pt will have HH with [facility]. Contact numbers for all providers placed in pt's discharge summary. TYE is following to finalize pt's discharge.
--- NOTE | 2021-02-21 08:37 | NUR ---
OSTOMY CARE F/U; POUCH INTACT, NO SIGNS LEAKAGE, PT STATES DAUGHTER INFORMED HER SECURE START OSTOMY SUPPLIES ARRIVED AT HER HOME YESTERDAY, HAS CONVEX 1'PRECUT OMAR POUCHES AT BS, INFORMED PT TO CONT USING THIS PRODUCT GETTING GOOD WEAR TIME, VERBAL UNDERSTANDING TRAINING MGR AWARE
[2021-02-21 08:54] VITALS: BP 110/59
[2021-02-21] MEDS ORDERED: CEFTRIAXON1 GM/50 M1 IVPB (10:25)
[2021-02-21] MEDS ORDERED: ACIDOPHILUS1 EAC4 PO (10:25)
[2021-02-21 12:30] VITALS: BP 110/59
--- NOTE | 2021-02-21 14:49 | NUR ---
VAT CONSULTED AND PLACED 4FR SL LEFT BASILIC PICC, TRIMMED 50CM WITH 2CM EXTERNAL. PT TOLERATED WELL. TIP LOCATION VERIFIED WITH 3CG. RELEASED LINE, PER HOSPITAL VASCULAR ACCESS POLICY.
[2021-02-21 15:19] VITALS: BP 114/60
--- NOTE | 2021-02-21 19:54 | NUR ---
1200 PT D/C ORDERS IN PT DISCHARGE, WAITING ON WOUND VAC AND HOME INFUSION [facility] FOR EDUCATION 1920 PT HOME WOUND VAC HERE, PT EDUCATED ON HOW TO CHANGE CANNISTER FOR WOUND VAC AND HOW TO CHARGE IT. ALL OTHER SUPPLIES GIVEN TO PT. PIV D/C. PICC LINE IN PLACE FOR HOME INFUSION. D/C INSTRUCTION AND NEW MED INFO GIVEN TO PT. PT DENIES ANY OTHER QUESTIONS. TAKEN DOWN, PT FAMILY OICKED HER UP
== END 2021-02-21 19:30 | disposition home or self-care (01) | DRG 862 ==
LOC: ER 17:25 → EROBS 21:02 → 3W 21:02
PROVIDERS: Emergency Medicine; Nurse Practitioner Family; ADMIT Hospitalist; ATTEND Hospitalist
PROC: 05HY33Z Insertion of Infusion Device into Upper Vein, Percutaneous Approach (ICD-10-PCS; principal; 2021-02-21)
DX: T81.43XA Infection following a procedure, organ and space surgical site, initial encounter (principal); E43 Unspecified severe protein-calorie malnutrition; L02.211 Cutaneous abscess of abdominal wall; K51.90 Ulcerative colitis, unspecified, without complications; Z68.41 Body mass index [BMI] 40.0-44.9, adult; E11.9 Type 2 diabetes mellitus without complications; E66.01 Morbid (severe) obesity due to excess calories; E87.6 Hypokalemia; R53.81 Other malaise; Z90.49 Acquired absence of other specified parts of digestive tract; Z88.2 Allergy status to sulfonamides; Z87.891 Personal history of nicotine dependence; Y83.8 Other surgical procedures as the cause of abnormal reaction of the patient, or of later complication, without mention of misadventure at the time of the procedure; Y92.89 Other specified places as the place of occurrence of the external cause
CPT/HCPCS: 10879

== ENCOUNTER → 2021-02-27 | Outpatient (CLI) | payer OTHER ==
[~2021-02-27] MED LIST changes: +ACIDOPHILUS1 EAC4 PO; +CEFTRIAXON1 GM/50 M1 IVPB
== END ==
LOC: HYPER 08:07
PROVIDERS: ATTEND Emergency Medicine
DX: T81.40XD Infection following a procedure, unspecified, subsequent encounter (principal); L98.492 Non-pressure chronic ulcer of skin of other sites with fat layer exposed; K51.818 Other ulcerative colitis with other complication; E66.9 Obesity, unspecified; Z68.38 Body mass index [BMI] 38.0-38.9, adult; Z93.3 Colostomy status; Z87.891 Personal history of nicotine dependence; Z79.899 Other long term (current) drug therapy; Y83.8 Other surgical procedures as the cause of abnormal reaction of the patient, or of later complication, without mention of misadventure at the time of the procedure

== ENCOUNTER → 2021-03-06 | Outpatient (CLI) | payer OTHER | LOC: HYPER 07:50 | PROVIDERS: ATTEND Emergency Medicine | DX: T81.49XD Infection following a procedure, other surgical site, subsequent encounter (principal); L98.492 Non-pressure chronic ulcer of skin of other sites with fat layer exposed; K51.818 Other ulcerative colitis with other complication; E66.01 Morbid (severe) obesity due to excess calories; Z68.38 Body mass index [BMI] 38.0-38.9, adult; Z93.3 Colostomy status; Z87.891 Personal history of nicotine dependence; Y83.8 Other surgical procedures as the cause of abnormal reaction of the patient, or of later complication, without mention of misadventure at the time of the procedure ==

== ENCOUNTER → 2021-03-20 | Outpatient (CLI) | payer OTHER | LOC: HYPER 08:01 | PROVIDERS: ATTEND Emergency Medicine | DX: T81.49XD Infection following a procedure, other surgical site, subsequent encounter (principal); L98.492 Non-pressure chronic ulcer of skin of other sites with fat layer exposed; K51.818 Other ulcerative colitis with other complication; E66.01 Morbid (severe) obesity due to excess calories; Z68.38 Body mass index [BMI] 38.0-38.9, adult; Z93.3 Colostomy status; Z87.891 Personal history of nicotine dependence; Y83.8 Other surgical procedures as the cause of abnormal reaction of the patient, or of later complication, without mention of misadventure at the time of the procedure ==

== ENCOUNTER → 2021-03-21 | Outpatient (CLI) | payer OTHER | LOC: HYPER 07:51 | PROVIDERS: ATTEND Emergency Medicine | DX: T81.40XD Infection following a procedure, unspecified, subsequent encounter (principal); L98.492 Non-pressure chronic ulcer of skin of other sites with fat layer exposed; K51.818 Other ulcerative colitis with other complication; E66.9 Obesity, unspecified; Z68.38 Body mass index [BMI] 38.0-38.9, adult; Z93.3 Colostomy status; Z87.891 Personal history of nicotine dependence; Z79.899 Other long term (current) drug therapy; Y83.8 Other surgical procedures as the cause of abnormal reaction of the patient, or of later complication, without mention of misadventure at the time of the procedure ==

== ENCOUNTER → 2021-03-27 | Outpatient (CLI) | payer OTHER | LOC: HYPER 07:38 | PROVIDERS: ATTEND Emergency Medicine Emergency Medical Services | DX: T81.49XD Infection following a procedure, other surgical site, subsequent encounter (principal); L98.492 Non-pressure chronic ulcer of skin of other sites with fat layer exposed; K51.818 Other ulcerative colitis with other complication; E66.01 Morbid (severe) obesity due to excess calories; Z68.38 Body mass index [BMI] 38.0-38.9, adult; Z93.3 Colostomy status; Z87.891 Personal history of nicotine dependence; Y83.8 Other surgical procedures as the cause of abnormal reaction of the patient, or of later complication, without mention of misadventure at the time of the procedure ==

== ENCOUNTER → 2021-04-10 | Outpatient (CLI) | payer OTHER | LOC: HYPER 08:05 | PROVIDERS: ATTEND Emergency Medicine | DX: T81.40XD Infection following a procedure, unspecified, subsequent encounter (principal); L98.492 Non-pressure chronic ulcer of skin of other sites with fat layer exposed; K51.818 Other ulcerative colitis with other complication; E66.9 Obesity, unspecified; Z68.38 Body mass index [BMI] 38.0-38.9, adult; Z87.891 Personal history of nicotine dependence; Z93.3 Colostomy status; Z79.899 Other long term (current) drug therapy; Y83.8 Other surgical procedures as the cause of abnormal reaction of the patient, or of later complication, without mention of misadventure at the time of the procedure ==

== ENCOUNTER → 2021-04-17 | Outpatient (CLI) | payer OTHER | LOC: HYPER 08:35 | PROVIDERS: ATTEND Emergency Medicine Emergency Medical Services | DX: T81.49XD Infection following a procedure, other surgical site, subsequent encounter (principal); L98.492 Non-pressure chronic ulcer of skin of other sites with fat layer exposed; K51.818 Other ulcerative colitis with other complication; E66.01 Morbid (severe) obesity due to excess calories; Z68.38 Body mass index [BMI] 38.0-38.9, adult; Z87.891 Personal history of nicotine dependence; Z93.3 Colostomy status; Y83.8 Other surgical procedures as the cause of abnormal reaction of the patient, or of later complication, without mention of misadventure at the time of the procedure ==

== ENCOUNTER → 2021-04-25 | Outpatient (CLI) | payer OTHER | LOC: HYPER 09:58 | PROVIDERS: ATTEND Emergency Medicine Emergency Medical Services | DX: T81.31XD Disruption of external operation (surgical) wound, not elsewhere classified, subsequent encounter (principal); T81.40XD Infection following a procedure, unspecified, subsequent encounter; L98.492 Non-pressure chronic ulcer of skin of other sites with fat layer exposed; K51.818 Other ulcerative colitis with other complication; E66.9 Obesity, unspecified; Z68.38 Body mass index [BMI] 38.0-38.9, adult; Z87.891 Personal history of nicotine dependence; Z79.899 Other long term (current) drug therapy; Z93.3 Colostomy status; Y83.8 Other surgical procedures as the cause of abnormal reaction of the patient, or of later complication, without mention of misadventure at the time of the procedure ==

== ENCOUNTER → 2021-04-28 | Outpatient (CLI) | payer OTHER | LOC: HYPER 08:28 | PROVIDERS: ATTEND Emergency Medicine | DX: T81.49XD Infection following a procedure, other surgical site, subsequent encounter (principal); L98.492 Non-pressure chronic ulcer of skin of other sites with fat layer exposed; K51.818 Other ulcerative colitis with other complication; E66.01 Morbid (severe) obesity due to excess calories; Z68.38 Body mass index [BMI] 38.0-38.9, adult; Z87.891 Personal history of nicotine dependence; Z93.3 Colostomy status; Y83.8 Other surgical procedures as the cause of abnormal reaction of the patient, or of later complication, without mention of misadventure at the time of the procedure ==

== ENCOUNTER → 2021-04-28 | Outpatient (CLI) | payer OTHER | LOC: CAT 04-16 08:44 | PROVIDERS: ATTEND Emergency Medicine | DX: M47.816 Spondylosis without myelopathy or radiculopathy, lumbar region (principal); L98.492 Non-pressure chronic ulcer of skin of other sites with fat layer exposed; Z90.49 Acquired absence of other specified parts of digestive tract ==

== ENCOUNTER → 2021-04-30 | Outpatient (CLI) | payer OTHER | LOC: HYPER 09:08 | PROVIDERS: ATTEND Emergency Medicine | DX: T81.49XD Infection following a procedure, other surgical site, subsequent encounter (principal); L98.492 Non-pressure chronic ulcer of skin of other sites with fat layer exposed; L84 Corns and callosities; K51.818 Other ulcerative colitis with other complication; E66.01 Morbid (severe) obesity due to excess calories; Z68.38 Body mass index [BMI] 38.0-38.9, adult; Z87.891 Personal history of nicotine dependence; Z93.3 Colostomy status; Y83.8 Other surgical procedures as the cause of abnormal reaction of the patient, or of later complication, without mention of misadventure at the time of the procedure ==

== ENCOUNTER → 2021-05-02 | Outpatient (CLI) | payer OTHER | LOC: HYPER 07:41 | PROVIDERS: ATTEND Emergency Medicine Emergency Medical Services | DX: T81.49XD Infection following a procedure, other surgical site, subsequent encounter (principal); L98.492 Non-pressure chronic ulcer of skin of other sites with fat layer exposed; L84 Corns and callosities; K51.818 Other ulcerative colitis with other complication; Z87.891 Personal history of nicotine dependence; Z93.3 Colostomy status; Y83.8 Other surgical procedures as the cause of abnormal reaction of the patient, or of later complication, without mention of misadventure at the time of the procedure ==

== ENCOUNTER → 2021-05-06 | Outpatient (CLI) | payer OTHER | LOC: HYPER 08:25 | PROVIDERS: ATTEND Emergency Medicine | DX: T81.31XD Disruption of external operation (surgical) wound, not elsewhere classified, subsequent encounter (principal); T81.40XD Infection following a procedure, unspecified, subsequent encounter; L98.492 Non-pressure chronic ulcer of skin of other sites with fat layer exposed; K51.818 Other ulcerative colitis with other complication; E66.9 Obesity, unspecified; Z68.38 Body mass index [BMI] 38.0-38.9, adult; Z93.3 Colostomy status; Z87.891 Personal history of nicotine dependence; Z79.899 Other long term (current) drug therapy; Y83.8 Other surgical procedures as the cause of abnormal reaction of the patient, or of later complication, without mention of misadventure at the time of the procedure ==

== ENCOUNTER → 2021-05-09 | Outpatient (CLI) | payer OTHER | LOC: HYPER 08:18 | PROVIDERS: ATTEND Emergency Medicine | DX: T81.31XD Disruption of external operation (surgical) wound, not elsewhere classified, subsequent encounter (principal); T81.40XD Infection following a procedure, unspecified, subsequent encounter; L98.492 Non-pressure chronic ulcer of skin of other sites with fat layer exposed; K51.818 Other ulcerative colitis with other complication; E66.9 Obesity, unspecified; Z68.38 Body mass index [BMI] 38.0-38.9, adult; Z87.891 Personal history of nicotine dependence; Z93.3 Colostomy status; Z79.899 Other long term (current) drug therapy; Y83.8 Other surgical procedures as the cause of abnormal reaction of the patient, or of later complication, without mention of misadventure at the time of the procedure ==

== ENCOUNTER → 2021-05-12 | Outpatient (CLI) | payer OTHER | LOC: HYPER 08:31 | PROVIDERS: ATTEND Emergency Medicine | DX: T81.49XD Infection following a procedure, other surgical site, subsequent encounter (principal); L98.492 Non-pressure chronic ulcer of skin of other sites with fat layer exposed; L84 Corns and callosities; K51.818 Other ulcerative colitis with other complication; E66.9 Obesity, unspecified; Z68.38 Body mass index [BMI] 38.0-38.9, adult; Z93.3 Colostomy status; Z87.891 Personal history of nicotine dependence; Y83.8 Other surgical procedures as the cause of abnormal reaction of the patient, or of later complication, without mention of misadventure at the time of the procedure ==

== ENCOUNTER → 2021-05-16 | Outpatient (CLI) | payer OTHER | LOC: HYPER 07:58 | DX: T81.31XD Disruption of external operation (surgical) wound, not elsewhere classified, subsequent encounter (principal); T81.40XD Infection following a procedure, unspecified, subsequent encounter; L98.492 Non-pressure chronic ulcer of skin of other sites with fat layer exposed; K51.818 Other ulcerative colitis with other complication; Z93.3 Colostomy status; E66.9 Obesity, unspecified; Z68.38 Body mass index [BMI] 38.0-38.9, adult; Z87.891 Personal history of nicotine dependence; Z79.899 Other long term (current) drug therapy; Y83.8 Other surgical procedures as the cause of abnormal reaction of the patient, or of later complication, without mention of misadventure at the time of the procedure ==

== ENCOUNTER → 2021-05-19 | Outpatient (CLI) | payer OTHER | LOC: HYPER 09:25 | PROVIDERS: ATTEND Emergency Medicine | DX: T81.49XD Infection following a procedure, other surgical site, subsequent encounter (principal); L98.492 Non-pressure chronic ulcer of skin of other sites with fat layer exposed; L84 Corns and callosities; K51.818 Other ulcerative colitis with other complication; E66.01 Morbid (severe) obesity due to excess calories; Z68.38 Body mass index [BMI] 38.0-38.9, adult; Z93.3 Colostomy status; Z87.891 Personal history of nicotine dependence; Y83.8 Other surgical procedures as the cause of abnormal reaction of the patient, or of later complication, without mention of misadventure at the time of the procedure ==

== ENCOUNTER → 2021-05-21 | Outpatient (CLI) | payer OTHER | LOC: HYPER 05-14 08:45 | PROVIDERS: ATTEND Emergency Medicine | DX: T81.31XD Disruption of external operation (surgical) wound, not elsewhere classified, subsequent encounter (principal); T81.40XD Infection following a procedure, unspecified, subsequent encounter; L98.492 Non-pressure chronic ulcer of skin of other sites with fat layer exposed; K51.818 Other ulcerative colitis with other complication; E66.9 Obesity, unspecified; Z68.38 Body mass index [BMI] 38.0-38.9, adult; Z87.891 Personal history of nicotine dependence; Z93.3 Colostomy status; Y83.8 Other surgical procedures as the cause of abnormal reaction of the patient, or of later complication, without mention of misadventure at the time of the procedure ==

== ENCOUNTER → 2021-05-23 | Outpatient (CLI) | payer OTHER | LOC: HYPER 08:10 | PROVIDERS: ATTEND Emergency Medicine Emergency Medical Services | DX: T81.31XD Disruption of external operation (surgical) wound, not elsewhere classified, subsequent encounter (principal); T81.40XD Infection following a procedure, unspecified, subsequent encounter; L98.492 Non-pressure chronic ulcer of skin of other sites with fat layer exposed; K51.818 Other ulcerative colitis with other complication; E66.9 Obesity, unspecified; Z87.891 Personal history of nicotine dependence; Z93.3 Colostomy status; Z79.899 Other long term (current) drug therapy; Y83.8 Other surgical procedures as the cause of abnormal reaction of the patient, or of later complication, without mention of misadventure at the time of the procedure ==

== ENCOUNTER → 2021-05-26 | Outpatient (CLI) | payer OTHER | LOC: HYPER 09:06 | PROVIDERS: ATTEND Emergency Medicine | DX: T81.49XD Infection following a procedure, other surgical site, subsequent encounter (principal); L98.492 Non-pressure chronic ulcer of skin of other sites with fat layer exposed; L84 Corns and callosities; K51.818 Other ulcerative colitis with other complication; E66.01 Morbid (severe) obesity due to excess calories; Z68.38 Body mass index [BMI] 38.0-38.9, adult; Z93.3 Colostomy status; Z87.891 Personal history of nicotine dependence; Y83.8 Other surgical procedures as the cause of abnormal reaction of the patient, or of later complication, without mention of misadventure at the time of the procedure ==

== ENCOUNTER → 2021-05-28 | Outpatient (CLI) | payer OTHER | LOC: HYPER 09:45 | PROVIDERS: ATTEND Emergency Medicine | DX: T81.49XD Infection following a procedure, other surgical site, subsequent encounter (principal); L98.492 Non-pressure chronic ulcer of skin of other sites with fat layer exposed; L84 Corns and callosities; K51.818 Other ulcerative colitis with other complication; E66.01 Morbid (severe) obesity due to excess calories; Z68.38 Body mass index [BMI] 38.0-38.9, adult; Z93.3 Colostomy status; Z87.891 Personal history of nicotine dependence; Y83.8 Other surgical procedures as the cause of abnormal reaction of the patient, or of later complication, without mention of misadventure at the time of the procedure ==

== ENCOUNTER → 2021-06-02 | Outpatient (CLI) | payer OTHER | LOC: HYPER 08:54 | PROVIDERS: ATTEND Emergency Medicine | DX: T81.49XD Infection following a procedure, other surgical site, subsequent encounter (principal); L98.492 Non-pressure chronic ulcer of skin of other sites with fat layer exposed; L84 Corns and callosities; K51.818 Other ulcerative colitis with other complication; E66.01 Morbid (severe) obesity due to excess calories; Z68.38 Body mass index [BMI] 38.0-38.9, adult; Z93.3 Colostomy status; Z87.891 Personal history of nicotine dependence; Y83.8 Other surgical procedures as the cause of abnormal reaction of the patient, or of later complication, without mention of misadventure at the time of the procedure ==

== ENCOUNTER → 2021-06-04 | Outpatient (CLI) | payer OTHER | LOC: HYPER 13:26 | PROVIDERS: ATTEND Emergency Medicine | DX: T81.49XD Infection following a procedure, other surgical site, subsequent encounter (principal); L98.492 Non-pressure chronic ulcer of skin of other sites with fat layer exposed; L84 Corns and callosities; K51.818 Other ulcerative colitis with other complication; E66.01 Morbid (severe) obesity due to excess calories; Z68.38 Body mass index [BMI] 38.0-38.9, adult; Z93.3 Colostomy status; Z87.891 Personal history of nicotine dependence; Y83.8 Other surgical procedures as the cause of abnormal reaction of the patient, or of later complication, without mention of misadventure at the time of the procedure ==

== ENCOUNTER → 2021-06-06 | Outpatient (CLI) | payer OTHER | LOC: HYPER 08:17 | PROVIDERS: ATTEND Emergency Medicine | DX: T81.40XD Infection following a procedure, unspecified, subsequent encounter (principal); L98.492 Non-pressure chronic ulcer of skin of other sites with fat layer exposed; K51.818 Other ulcerative colitis with other complication; E66.9 Obesity, unspecified; Z93.3 Colostomy status; Z87.891 Personal history of nicotine dependence; Z79.899 Other long term (current) drug therapy; Y83.8 Other surgical procedures as the cause of abnormal reaction of the patient, or of later complication, without mention of misadventure at the time of the procedure ==

== ENCOUNTER → 2021-06-09 | Outpatient (CLI) | payer OTHER | LOC: HYPER 08:54 | PROVIDERS: ATTEND Emergency Medicine | DX: T81.49XD Infection following a procedure, other surgical site, subsequent encounter (principal); L98.492 Non-pressure chronic ulcer of skin of other sites with fat layer exposed; L84 Corns and callosities; K51.818 Other ulcerative colitis with other complication; E66.01 Morbid (severe) obesity due to excess calories; Z68.38 Body mass index [BMI] 38.0-38.9, adult; Z93.3 Colostomy status; Z87.891 Personal history of nicotine dependence; Y83.8 Other surgical procedures as the cause of abnormal reaction of the patient, or of later complication, without mention of misadventure at the time of the procedure ==

== ENCOUNTER → 2021-06-11 | Outpatient (CLI) | payer OTHER | LOC: HYPER 09:15 | PROVIDERS: ATTEND Emergency Medicine | DX: T81.49XD Infection following a procedure, other surgical site, subsequent encounter (principal); L98.492 Non-pressure chronic ulcer of skin of other sites with fat layer exposed; L84 Corns and callosities; K51.818 Other ulcerative colitis with other complication; E66.01 Morbid (severe) obesity due to excess calories; Z68.38 Body mass index [BMI] 38.0-38.9, adult; Z93.3 Colostomy status; Z87.891 Personal history of nicotine dependence; Y83.8 Other surgical procedures as the cause of abnormal reaction of the patient, or of later complication, without mention of misadventure at the time of the procedure ==

== ENCOUNTER → 2021-06-13 | Outpatient (CLI) | payer OTHER | LOC: HYPER 07:46 | PROVIDERS: ATTEND Emergency Medicine Emergency Medical Services | DX: T81.31XD Disruption of external operation (surgical) wound, not elsewhere classified, subsequent encounter (principal); T81.49XD Infection following a procedure, other surgical site, subsequent encounter; L98.492 Non-pressure chronic ulcer of skin of other sites with fat layer exposed; K51.818 Other ulcerative colitis with other complication; E66.9 Obesity, unspecified; Z68.38 Body mass index [BMI] 38.0-38.9, adult; Z87.891 Personal history of nicotine dependence; Z93.3 Colostomy status; Y83.8 Other surgical procedures as the cause of abnormal reaction of the patient, or of later complication, without mention of misadventure at the time of the procedure ==

== ENCOUNTER → 2021-06-16 | Outpatient (CLI) | payer OTHER | LOC: HYPER 08:20 | PROVIDERS: ATTEND Emergency Medicine | DX: T81.40XD Infection following a procedure, unspecified, subsequent encounter (principal); L98.492 Non-pressure chronic ulcer of skin of other sites with fat layer exposed; K51.818 Other ulcerative colitis with other complication; E66.9 Obesity, unspecified; Z68.38 Body mass index [BMI] 38.0-38.9, adult; Z87.891 Personal history of nicotine dependence; Z79.899 Other long term (current) drug therapy; Z93.3 Colostomy status; Y83.8 Other surgical procedures as the cause of abnormal reaction of the patient, or of later complication, without mention of misadventure at the time of the procedure ==

== ENCOUNTER → 2021-06-20 | Outpatient (CLI) | payer OTHER | LOC: HYPER 07:53 | PROVIDERS: ATTEND Emergency Medicine Emergency Medical Services | DX: T81.49XD Infection following a procedure, other surgical site, subsequent encounter (principal); L98.492 Non-pressure chronic ulcer of skin of other sites with fat layer exposed; K51.818 Other ulcerative colitis with other complication; Z87.891 Personal history of nicotine dependence; Z98.890 Other specified postprocedural states; Z93.3 Colostomy status; Y83.8 Other surgical procedures as the cause of abnormal reaction of the patient, or of later complication, without mention of misadventure at the time of the procedure ==

== ENCOUNTER → 2021-06-23 | Outpatient (CLI) | payer OTHER | LOC: HYPER 13:34 | PROVIDERS: ATTEND Emergency Medicine | DX: T81.49XD Infection following a procedure, other surgical site, subsequent encounter (principal); L98.492 Non-pressure chronic ulcer of skin of other sites with fat layer exposed; L84 Corns and callosities; K51.818 Other ulcerative colitis with other complication; E66.01 Morbid (severe) obesity due to excess calories; Z87.891 Personal history of nicotine dependence; Z93.3 Colostomy status; Z68.38 Body mass index [BMI] 38.0-38.9, adult; Y83.8 Other surgical procedures as the cause of abnormal reaction of the patient, or of later complication, without mention of misadventure at the time of the procedure ==

== ENCOUNTER → 2021-06-30 | Outpatient (CLI) | payer OTHER | LOC: HYPER 13:10 | PROVIDERS: ATTEND Emergency Medicine | DX: T81.49XD Infection following a procedure, other surgical site, subsequent encounter (principal); L98.492 Non-pressure chronic ulcer of skin of other sites with fat layer exposed; L84 Corns and callosities; K51.818 Other ulcerative colitis with other complication; E66.01 Morbid (severe) obesity due to excess calories; Z87.891 Personal history of nicotine dependence; Z93.3 Colostomy status; Z68.38 Body mass index [BMI] 38.0-38.9, adult; Y83.8 Other surgical procedures as the cause of abnormal reaction of the patient, or of later complication, without mention of misadventure at the time of the procedure ==

== ENCOUNTER → 2021-07-14 | Outpatient (CLI) | payer OTHER | LOC: HYPER 08:14 | PROVIDERS: ATTEND Emergency Medicine | DX: T81.49XD Infection following a procedure, other surgical site, subsequent encounter (principal); L98.492 Non-pressure chronic ulcer of skin of other sites with fat layer exposed; L84 Corns and callosities; K51.818 Other ulcerative colitis with other complication; E66.01 Morbid (severe) obesity due to excess calories; Z87.891 Personal history of nicotine dependence; Z93.3 Colostomy status; Z68.38 Body mass index [BMI] 38.0-38.9, adult; Y83.8 Other surgical procedures as the cause of abnormal reaction of the patient, or of later complication, without mention of misadventure at the time of the procedure ==

== ENCOUNTER → 2021-07-28 | Outpatient (CLI) | payer OTHER | LOC: HYPER 10:28 | PROVIDERS: ATTEND Emergency Medicine | DX: T81.31XD Disruption of external operation (surgical) wound, not elsewhere classified, subsequent encounter (principal); T81.49XD Infection following a procedure, other surgical site, subsequent encounter; L98.492 Non-pressure chronic ulcer of skin of other sites with fat layer exposed; K51.818 Other ulcerative colitis with other complication; E66.9 Obesity, unspecified; Z68.38 Body mass index [BMI] 38.0-38.9, adult; Z87.891 Personal history of nicotine dependence; Z79.899 Other long term (current) drug therapy; Z93.3 Colostomy status; Y83.8 Other surgical procedures as the cause of abnormal reaction of the patient, or of later complication, without mention of misadventure at the time of the procedure ==

== ENCOUNTER → 2021-08-18 | Outpatient (CLI) | payer OTHER | LOC: HYPER 09:57 | PROVIDERS: ATTEND Emergency Medicine Emergency Medical Services | DX: T81.31XD Disruption of external operation (surgical) wound, not elsewhere classified, subsequent encounter (principal); T81.49XD Infection following a procedure, other surgical site, subsequent encounter; L98.492 Non-pressure chronic ulcer of skin of other sites with fat layer exposed; K51.818 Other ulcerative colitis with other complication; E66.9 Obesity, unspecified; Z68.38 Body mass index [BMI] 38.0-38.9, adult; Z87.891 Personal history of nicotine dependence; Z79.899 Other long term (current) drug therapy; Z93.3 Colostomy status; Y83.8 Other surgical procedures as the cause of abnormal reaction of the patient, or of later complication, without mention of misadventure at the time of the procedure ==

== ENCOUNTER → 2021-09-01 | Outpatient (CLI) | payer OTHER | LOC: HYPER 08:49 | PROVIDERS: ATTEND Emergency Medicine | DX: T81.49XD Infection following a procedure, other surgical site, subsequent encounter (principal); T81.31XD Disruption of external operation (surgical) wound, not elsewhere classified, subsequent encounter; L98.492 Non-pressure chronic ulcer of skin of other sites with fat layer exposed; K51.818 Other ulcerative colitis with other complication; E66.01 Morbid (severe) obesity due to excess calories; Z68.38 Body mass index [BMI] 38.0-38.9, adult; Z87.891 Personal history of nicotine dependence; Z93.3 Colostomy status; Y83.8 Other surgical procedures as the cause of abnormal reaction of the patient, or of later complication, without mention of misadventure at the time of the procedure ==

== ENCOUNTER → 2021-09-15 | Outpatient (CLI) | payer OTHER | LOC: HYPER 10:37 | PROVIDERS: ATTEND Emergency Medicine | DX: T81.49XD Infection following a procedure, other surgical site, subsequent encounter (principal); T81.31XD Disruption of external operation (surgical) wound, not elsewhere classified, subsequent encounter; L98.492 Non-pressure chronic ulcer of skin of other sites with fat layer exposed; K51.818 Other ulcerative colitis with other complication; E66.01 Morbid (severe) obesity due to excess calories; Z68.38 Body mass index [BMI] 38.0-38.9, adult; Z87.891 Personal history of nicotine dependence; Z93.3 Colostomy status; Y83.8 Other surgical procedures as the cause of abnormal reaction of the patient, or of later complication, without mention of misadventure at the time of the procedure ==

== ENCOUNTER → 2021-09-29 | Outpatient (CLI) | payer OTHER | LOC: HYPER 12:42 | PROVIDERS: ATTEND Emergency Medicine | DX: T81.49XD Infection following a procedure, other surgical site, subsequent encounter (principal); T81.31XD Disruption of external operation (surgical) wound, not elsewhere classified, subsequent encounter; L98.492 Non-pressure chronic ulcer of skin of other sites with fat layer exposed; K51.818 Other ulcerative colitis with other complication; E66.01 Morbid (severe) obesity due to excess calories; Z68.38 Body mass index [BMI] 38.0-38.9, adult; Z87.891 Personal history of nicotine dependence; Z93.3 Colostomy status; Y83.8 Other surgical procedures as the cause of abnormal reaction of the patient, or of later complication, without mention of misadventure at the time of the procedure ==

== ENCOUNTER → 2021-10-03 | Outpatient (CLI) | payer OTHER | LOC: HYPER 07:56 | PROVIDERS: ATTEND Emergency Medicine | DX: T81.49XD Infection following a procedure, other surgical site, subsequent encounter (principal); T81.31XD Disruption of external operation (surgical) wound, not elsewhere classified, subsequent encounter; L98.492 Non-pressure chronic ulcer of skin of other sites with fat layer exposed; K51.818 Other ulcerative colitis with other complication; E66.01 Morbid (severe) obesity due to excess calories; Z68.38 Body mass index [BMI] 38.0-38.9, adult; Z87.891 Personal history of nicotine dependence; Z93.3 Colostomy status; Y83.8 Other surgical procedures as the cause of abnormal reaction of the patient, or of later complication, without mention of misadventure at the time of the procedure ==

== ENCOUNTER → 2021-10-06 | Outpatient (CLI) | payer OTHER | LOC: HYPER 08:29 | PROVIDERS: ATTEND Emergency Medicine | DX: T81.31XD Disruption of external operation (surgical) wound, not elsewhere classified, subsequent encounter (principal); T81.49XD Infection following a procedure, other surgical site, subsequent encounter; L98.492 Non-pressure chronic ulcer of skin of other sites with fat layer exposed; K51.818 Other ulcerative colitis with other complication; R05.9 Cough, unspecified; E66.9 Obesity, unspecified; Z68.38 Body mass index [BMI] 38.0-38.9, adult; Z93.3 Colostomy status; Z87.891 Personal history of nicotine dependence; Z79.899 Other long term (current) drug therapy; Y83.8 Other surgical procedures as the cause of abnormal reaction of the patient, or of later complication, without mention of misadventure at the time of the procedure ==

== ENCOUNTER → 2021-10-08 | Outpatient (CLI) | payer OTHER | LOC: HYPER 07:50 | PROVIDERS: ATTEND Emergency Medicine | DX: T81.31XD Disruption of external operation (surgical) wound, not elsewhere classified, subsequent encounter (principal); T81.49XD Infection following a procedure, other surgical site, subsequent encounter; L98.492 Non-pressure chronic ulcer of skin of other sites with fat layer exposed; K51.818 Other ulcerative colitis with other complication; E66.9 Obesity, unspecified; Z68.38 Body mass index [BMI] 38.0-38.9, adult; Z87.891 Personal history of nicotine dependence; Z79.899 Other long term (current) drug therapy; Z93.3 Colostomy status; Y83.8 Other surgical procedures as the cause of abnormal reaction of the patient, or of later complication, without mention of misadventure at the time of the procedure ==

== ENCOUNTER → 2021-10-10 | Outpatient (CLI) | payer OTHER | LOC: HYPER 08:05 | PROVIDERS: ATTEND Emergency Medicine | DX: T81.49XD Infection following a procedure, other surgical site, subsequent encounter (principal); L98.492 Non-pressure chronic ulcer of skin of other sites with fat layer exposed; K51.818 Other ulcerative colitis with other complication; R05.9 Cough, unspecified; E66.01 Morbid (severe) obesity due to excess calories; Z68.38 Body mass index [BMI] 38.0-38.9, adult; Z93.3 Colostomy status; Z87.891 Personal history of nicotine dependence; Y83.8 Other surgical procedures as the cause of abnormal reaction of the patient, or of later complication, without mention of misadventure at the time of the procedure ==

== ENCOUNTER → 2021-10-13 | Outpatient (CLI) | payer OTHER | LOC: HYPER 12:59 | PROVIDERS: ATTEND Emergency Medicine | DX: T81.31XD Disruption of external operation (surgical) wound, not elsewhere classified, subsequent encounter (principal); T81.49XD Infection following a procedure, other surgical site, subsequent encounter; L98.492 Non-pressure chronic ulcer of skin of other sites with fat layer exposed; K51.818 Other ulcerative colitis with other complication; R05.9 Cough, unspecified; E66.9 Obesity, unspecified; Z68.38 Body mass index [BMI] 38.0-38.9, adult; Z87.891 Personal history of nicotine dependence; Z79.899 Other long term (current) drug therapy; Z93.3 Colostomy status; Y83.8 Other surgical procedures as the cause of abnormal reaction of the patient, or of later complication, without mention of misadventure at the time of the procedure ==

== ENCOUNTER → 2021-10-15 | Outpatient (CLI) | payer OTHER | LOC: HYPER 08:32 | PROVIDERS: ATTEND Emergency Medicine | DX: T81.49XD Infection following a procedure, other surgical site, subsequent encounter (principal); L98.492 Non-pressure chronic ulcer of skin of other sites with fat layer exposed; L84 Corns and callosities; K51.818 Other ulcerative colitis with other complication; R05.9 Cough, unspecified; E66.01 Morbid (severe) obesity due to excess calories; Z68.38 Body mass index [BMI] 38.0-38.9, adult; Z93.3 Colostomy status; Z87.891 Personal history of nicotine dependence; Y83.8 Other surgical procedures as the cause of abnormal reaction of the patient, or of later complication, without mention of misadventure at the time of the procedure ==

== ENCOUNTER → 2021-10-17 | Outpatient (CLI) | payer OTHER | LOC: HYPER 09:50 | PROVIDERS: ATTEND Emergency Medicine | DX: T81.31XD Disruption of external operation (surgical) wound, not elsewhere classified, subsequent encounter (principal); T81.49XD Infection following a procedure, other surgical site, subsequent encounter; L98.492 Non-pressure chronic ulcer of skin of other sites with fat layer exposed; K51.818 Other ulcerative colitis with other complication; E66.9 Obesity, unspecified; Z68.38 Body mass index [BMI] 38.0-38.9, adult; Z87.891 Personal history of nicotine dependence; Z79.899 Other long term (current) drug therapy; Z93.3 Colostomy status; Y83.8 Other surgical procedures as the cause of abnormal reaction of the patient, or of later complication, without mention of misadventure at the time of the procedure ==

== ENCOUNTER → 2021-10-20 | Outpatient (CLI) | payer OTHER | LOC: HYPER 07:43 | PROVIDERS: ATTEND Emergency Medicine | DX: T81.49XD Infection following a procedure, other surgical site, subsequent encounter (principal); L98.492 Non-pressure chronic ulcer of skin of other sites with fat layer exposed; K51.818 Other ulcerative colitis with other complication; R05.9 Cough, unspecified; E66.9 Obesity, unspecified; Z68.38 Body mass index [BMI] 38.0-38.9, adult; Z87.891 Personal history of nicotine dependence; Z79.899 Other long term (current) drug therapy; Z93.3 Colostomy status; Y83.8 Other surgical procedures as the cause of abnormal reaction of the patient, or of later complication, without mention of misadventure at the time of the procedure ==

== ENCOUNTER → 2021-10-23 | Outpatient (CLI) | payer OTHER | LOC: HYPER 11:29 | PROVIDERS: ATTEND Emergency Medicine | DX: T81.31XD Disruption of external operation (surgical) wound, not elsewhere classified, subsequent encounter (principal); T81.49XD Infection following a procedure, other surgical site, subsequent encounter; L98.492 Non-pressure chronic ulcer of skin of other sites with fat layer exposed; K51.818 Other ulcerative colitis with other complication; R05.9 Cough, unspecified; E66.01 Morbid (severe) obesity due to excess calories; Z68.38 Body mass index [BMI] 38.0-38.9, adult; Z87.891 Personal history of nicotine dependence; Z93.3 Colostomy status; Y83.8 Other surgical procedures as the cause of abnormal reaction of the patient, or of later complication, without mention of misadventure at the time of the procedure ==

== ENCOUNTER → 2021-10-27 | Outpatient (CLI) | payer OTHER | LOC: HYPER 07:55 | PROVIDERS: ATTEND Emergency Medicine Emergency Medical Services | DX: T81.31XD Disruption of external operation (surgical) wound, not elsewhere classified, subsequent encounter (principal); T81.49XD Infection following a procedure, other surgical site, subsequent encounter; L98.492 Non-pressure chronic ulcer of skin of other sites with fat layer exposed; L84 Corns and callosities; K51.818 Other ulcerative colitis with other complication; R05.9 Cough, unspecified; E66.01 Morbid (severe) obesity due to excess calories; Z68.38 Body mass index [BMI] 38.0-38.9, adult; Z87.891 Personal history of nicotine dependence; Z93.3 Colostomy status; Y83.8 Other surgical procedures as the cause of abnormal reaction of the patient, or of later complication, without mention of misadventure at the time of the procedure ==